=== PATIENT | female | born 1985 | race Caucasian/White ===

== ENCOUNTER → 2022-02-06 | Day surgery (SDC) | payer MEDICARE, OTHER ==
[~2022-02-06] VITALS: Ht 167.6 cm; Wt 53.1 kg
[~2022-02-06] MED LIST: COMBIVENT RESPIM4 GM INH; HYDROXYZINE PAM50 M1 PO; SLOW I PO; VENTOLIN HFA18 GM INH; VITAMIN D21250 MCG PO; VITAMIN D3125 MC2 PO
[2022-02-06 10:50] LABS: HCG (URINE) SCREEN NEGATIVE (NEGATIVE)
== END | disposition home or self-care (01) ==
LOC: FAS 10:23
PROVIDERS: Student in an Organized Health Care Education/Training Program
DX: K92.1 Melena (principal); K31.9 Disease of stomach and duodenum, unspecified; K29.70 Gastritis, unspecified, without bleeding; S36.50 Unspecified injury of colon; X58.XXXA Exposure to other specified factors, initial encounter; J45.909 Unspecified asthma, uncomplicated; E03.9 Hypothyroidism, unspecified; D50.9 Iron deficiency anemia, unspecified; K50.90 Crohn's disease, unspecified, without complications; Z87.11 Personal history of peptic ulcer disease; Z87.19 Personal history of other diseases of the digestive system; Z88.8 Allergy status to other drugs, medicaments and biological substances; Z72.0 Tobacco use
CPT/HCPCS: 84703; J2704; J7120